=== PATIENT | male | born 1980 | race Caucasian/White ===

== ENCOUNTER 2019-05-17 04:26 | Inpatient (IN) | payer MEDICARE, MEDICAID ==
[~2019-05-17] VITALS: Ht 188 cm; Wt 104.3 kg
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
[2019-05-17] MEDS ORDERED: TDAP [DIPH/PERTUSSIS/TET] 0.5 ML VIAL IM ONE ×2 (04:45→05:00)
[2019-05-17 04:58] LABS: BASOPHILS % (AUTO) 0.3 % (0.0-2.0); EOSINOPHILS % (AUTO) 0.4 % (0.0-6.0); HEMATOCRIT 39 % (39-51); HEMOGLOBIN 13.7 g/dL (13.5-17.5); LYMPHOCYTES # (AUTO) 0.9 /CMM (0.8-4.8); LYMPHOCYTES % (AUTO) 8.4 % (20.0-44.0); MEAN CORPUSCULAR HGB CONC 36 g/dl (31.0-36.0); MEAN CORPUSCULAR VOLUME 87 fL (80-96); MONOCYTES # (AUTO) 0.8 /CMM (0.1-1.30); MONOCYTES % (AUTO) 7.7 % (2.0-12.0); NEUTROPHILS # (AUTO) 8.8 /CMM (1.8-8.9); NEUTROPHILS % (AUTO) 83.2 % (43.0-81.0); PLATELET COUNT (AUTO) 157 /CMM (150-450); RED BLOOD CELL COUNT(AUTO) 4.45 MIL/uL (4.5-6.0); WHITE BLOOD COUNT (AUTO) 10.6 K/uL (4.3-11.0)
[2019-05-17 05:09] LABS: CALCIUM, SERUM 8.8 mg/dL (8.5-10.1); CARBON DIOXIDE 26 mmol/L (21-32); CHLORIDE 95 mmol/L (98-107); CREATININE 0.9 mg/dL (0.6-1.3); GLUCOSE 123 mg/dL (74-106); POTASSIUM 3.8 mmol/L (3.5-5.1); SODIUM SERUM 132 mmol/L (136-145); UREA NITROGEN, BLOOD 6 mg/dL (7-18)
[2019-05-17 05:19] LABS: ALANINE AMINOTRANSFERASE 37 U/L (12-78); ALBUMIN 4.3 g/dL (3.4-5.0); ALCOHOL, BLOOD < 3 mg/dL (0-0); ALKALINE PHOSPHATASE 70 U/L (46-116); ASPARTATE AMINOTRANSFERASE 46 U/L (15-37); BILIRUBIN,DIRECT 0.2 mg/dL (0.0-0.2); BILIRUBIN,TOTAL 0.6 mg/dL (0.2-1.0)
[2019-05-17] MEDS ORDERED: LIDOCAINE 1%-EPI 1:100,000 20 ML VIAL ONE (05:19)
[2019-05-17 05:20] LABS: ACETAMINOPHEN 0 ug/ml (10-30); SALICYLATE < 0.2 mg/dL (2.8-20.0)
--- NOTE | 2019-05-17 05:25 | NUR ---
pt received mihai on his R head laceration by at the bed side. tolerated the procedure well
--- NOTE | 2019-05-17 05:34 | NUR ---
urine collected and called lab for steel pickler
[2019-05-17 05:45] LABS: APPEARANCE,URINE CLEAR (CLEAR); BILIRUBIN,URINE NEGATIVE (NEGATIVE); BLOOD, URINE NEGATIVE Ery/uL (NEGATIVE); COLOR,URINE YELLOW (YELLOW); KETONES,URINE NEGATIVE (NEGATIVE); NITRITE, URINE NEGATIVE (NEGATIVE); PROTEIN,URINE NEGATIVE (NEGATIVE); UGLUCOSE NEGATIVE (NEGATIVE); UROBILINOGEN,URINE 0.2 EU/dL (0.2)
[2019-05-17 05:46] LABS: LEUKOCYTE ESTERASE ,URINE NEGATIVE (NEGATIVE)
[2019-05-17] MEDS ORDERED: MORPHINE SULFATE INJ 2 MG/ML DISP.SYRIN IV ONE (06:00)
[2019-05-17] MEDS ORDERED: MORPHINE SULFATE INJ 2 MG/ML DISP.SYRIN ONE (06:01)
[2019-05-17] MEDS ORDERED: IV NS 0.9% 1,000 ML BAG IV ONE (07:00)
--- NOTE | 2019-05-17 07:25 | NUR ---
ENDORSEMENT RECEIVED FROM BIJAN RICE FOR KEMAL
--- NOTE | 2019-05-17 07:30 | NUR ---
RN MS NOTES LIST OF CURRENT MEDS OBTAINED FROM OCTAVIA RICE, OF [facility].
--- NOTE | 2019-05-17 07:40 | NUR ---
report given to nuvia on third floor
[2019-05-17] MEDS ORDERED: ACETAMINOPHEN 325 MG TABLET PO PRN (08:00)
[2019-05-17] MEDS ORDERED: ONDANSETRON HCL/PF 4 MG/2 ML VIAL IVP PRN (08:00)
[2019-05-17] MEDS ORDERED: MAGNESIUM HYDROXIDE 30 ML UDC PO PRN (08:00)
[2019-05-17] MEDS ORDERED: MAG HYDROX/AL HYDROX/SIMETH 30 ML UDC PO PRN (08:00)
[2019-05-17] MEDS ORDERED: ZOLPIDEM TARTRATE 5 MG TABLET PO PRN ×2 (08:00→13:30)
[2019-05-17] MEDS ORDERED: Z GUARD REMEDY 2 OZ OINT TP PRN (08:00)
--- NOTE | 2019-05-17 08:10 | NUR ---
RN MS NOTES RECEIVED PT FROM E.R. STAFF, PT IS AWAKE, ALERT AND VERBALLY RESPONSIVE, NOT IN DISTRESS, COMPLAINING OF LEFT ARM PAIN, ASSISTED TO BED, MADE COMFORTABLE, ROOM SET UP ORIENTATION PROVIDED, VERBALIZED UNDERSTANDING, SITTER AT BEDSIDE, SAFETY PRECAUTIONS OBSERVED, DRESSING AT LEFT ARM INTACT.
[2019-05-17] MEDS: MORPHINE SULFATE INJ 2 MG/ML DISP.SYRIN IV PRN ×3 (09:10→18:45)
[2019-05-17 11:30] VITALS: BP 153/85
--- NOTE | 2019-05-17 11:30 | NUR ---
RN MS NOTES LIMITED SKIN ASSESSMENT DONE, PT DOES NOT WANT THE REST OF HIS BODY BE CHECKED.
[2019-05-17] MEDS ORDERED: LORAZEPAM 1 MG TABLET PO PRN (13:30)
[2019-05-17] MEDS ORDERED: HALOPERIDOL 5 MG TABLET PO PRN (13:30)
[2019-05-17] MEDS: HALOPERIDOL 5 MG TABLET PO SCH ×2 (13:43→16:14)
[2019-05-17] MEDS: BENZTROPINE MESYLATE (1 MG) 1 MG TABLET PO SCH ×2 (13:43→16:14)
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
[2019-05-17] MEDS: HYDROCODONE/APAP 5/325MG 1 EACH TABLET PO PRN ×2 (16:14→23:05)
[2019-05-17 17:00] VITALS: BP 139/77
--- NOTE | 2019-05-17 18:11 | NUR ---
RN MS NOTES PT IN BED, AWAKE, ALERT AND VERBALLY RESPONSIVE, CALM AT THIS TIME, PAIN MEDS GIVEN ORDERED, KEPT SLING AT LEFT ARM IN PLACE, REINFORCED NEEDED, PT SEEN BY TOMMY DALTON, SITTER AT BEDSIDE, CALL LIGHT WITHIN REACH, NEEDS ATTENDED, SAFETY PRECAUTIONS OBSERVED.
--- NOTE | 2019-05-17 19:30 | NUR ---
MS KRYSTAL NOTES RECEIVED ON BED A/O X2,BREATHING NORMAL,NOT IN ANY FORM OF DISTRESS.LEFT ARM ULNAR FRACTURE,WITH SPLINTS WRAPPED WITH BROWN KERLIX.SALINE LOCK LEFT AC #18 INTACT AND PATENT.NOTED SKIN ABRASION ON NOSE RIDGE.FALL PRECAUTION OBSERVED.MONITOR FOR SUICIDAL IDEATION.SITTER AT BEDSIDE FOR SAFETY.CALL LIGHT IN REACH,NEEDS ANTICIPATED. Addendum: 05/17/19 at 2043 by ARLEN AMARO RN SALINE LOCK ON THE RIGHT AC #18
[2019-05-17] MEDS ORDERED: MIRT15TA7 PO (19:39)
[2019-05-17] MEDS ORDERED: QUET100T PO (19:39)
[2019-05-17] MEDS ORDERED: HALO100A2 IM (19:39)
[2019-05-17] MEDS ORDERED: HALO10TA13 PO (19:39)
[2019-05-17 20:00] VITALS: BP 125/75
--- NOTE | 2019-05-17 23:05 | NUR ---
MS RN NOTES PAIN MANAGEMENT AWAKE,C/O LEFT ARM PAIN 7/10 ON PAIN SCALE,NORCO 5/325MG,1 TAB PO GIVEN
--- NOTE | 2019-05-18 00:20 | NUR ---
MS RN NOTES C/O INSOMNIA,AMBIEN 5MG,2 TABS PO GIVEN ORDERED 10MG.
--- NOTE | 2019-05-18 06:14 | NUR ---
MS RN NOTES ON BED SLEEPING.AMBIEN 10MG PO EFFECTIVE.PAIN MANAGEMENT WORKS WELL.NO FALL, SITTER AT BEDSIDE.LEFT ARM SPLINTS REMAINS IN PLACE.IN NO ACUTE DISTRESS.WILL ENDORSE TO DAY NURSE FOR KEMAL.
[2019-05-18 06:25] LABS: BASOPHILS % (AUTO) 0.6 % (0.0-2.0); HEMATOCRIT 40 % (39-51); HEMOGLOBIN 13.7 g/dL (13.5-17.5); LYMPHOCYTES # (AUTO) 1.2 /CMM (0.8-4.8); LYMPHOCYTES % (AUTO) 16.8 % (20.0-44.0); MEAN CORPUSCULAR HGB CONC 35 g/dl (31.0-36.0); MEAN CORPUSCULAR VOLUME 89 fL (80-96); MONOCYTES # (AUTO) 1.1 /CMM (0.1-1.30); MONOCYTES % (AUTO) 15.8 % (2.0-12.0); NEUTROPHILS # (AUTO) 4.6 /CMM (1.8-8.9); NEUTROPHILS % (AUTO) 65.8 % (43.0-81.0); PLATELET COUNT (AUTO) 162 /CMM (150-450); RED BLOOD CELL COUNT(AUTO) 4.45 MIL/uL (4.5-6.0)
[2019-05-18 06:40] LABS: ALBUMIN 4.1 g/dL (3.4-5.0); CREATININE 0.8 mg/dL (0.6-1.3); MAGNESIUM 1.9 mg/dL (1.8-2.4); PHOSPHORUS 3.1 mg/dL (2.5-4.9); POTASSIUM 3.6 mmol/L (3.5-5.1); TOTAL PROTEIN, SERUM 7.1 g/dL (6.4-8.2)
--- NOTE | 2019-05-18 07:30 | NUR ---
RN MS NOTES PT IN BED, AWAKE, ALERT TO SELF, VERBALLY RESPONSIVE, NO FACIAL GRIMACING, STATED THAT HE IS NOT IN PAIN RIGHT NOW, COMPLIANT WITH CARE, SITTER AT BEDSIDE, SAFETY PRECAUTIONS OBSERVED.
[2019-05-18 08:00] VITALS: BP 126/81
[2019-05-18] MEDS: HALOPERIDOL 5 MG TABLET PO SCH ×2 (08:25→17:24)
[2019-05-18] MEDS: BENZTROPINE MESYLATE (1 MG) 1 MG TABLET PO SCH ×2 (08:25→17:24)
[2019-05-18] MEDS: HYDROCODONE/APAP 5/325MG 1 EACH TABLET PO PRN ×2 (09:24→17:25)
--- NOTE | 2019-05-18 13:00 | NUR ---
RN MS NOTES PT IN BED, AWAKE, ALERT AND VERBALLY RESPONSIVE, CALM AT THIS TIME, PAIN MEDS GIVEN ORDERED, SEEN BY DR. DOMINIQUE, SPLINT AT LEFT ARM IN PLACE, SAFETY PRECAUTIONS OBSERVED.
[2019-05-18 16:00] VITALS: BP 119/72
--- NOTE | 2019-05-18 18:21 | NUR ---
RN MS NOTES PT IN BED, AWAKE, ALERT AND VERBALLY RESPONSIVE, CALM AND COMPLIANT WITH MEDS AND INTERVENTIONS, SEEN BY CRISIS TEAM, PLACED ON HOLD, SAFETY PRECAUTIONS OBSERVED, ASSISTED TO BATHROOM NEEDED, KEPT LEFT ARM SPLINT IN PLACE, AWAITING MENTAL HEALTH UNIT PLACEMENT.
--- NOTE | 2019-05-18 19:39 | NUR ---
MS BRIDGER INITIAL NOTES RECEIVED REPORT FROM AM NURSE WHILE DOING OUT ROUNDS AND SEEN PT IN BED LYING IN BED CALMED AND QUIET BUT INTERACT WHEN YOU TALKED TO HIM. NO SIGNS OF ANY DISTRESS NOTED. ABLE TO FOLLOWED DIRECTION . KEPT HIM COMFORTABLE AND SAFE AT ALL TIMES. SITTER AT THE BEDSIDE FOR SAFETY. WILL CONTINUE MONITORING.
[2019-05-18 20:00] VITALS: BP 115/63
--- NOTE | 2019-05-18 20:45 | NUR ---
MS SHED BOSS NOTES GOT CALLED FROM [facility]TA[facility]E AND TELLING ME THAT LET THE SPORTS PHYSICIAN AWARE THAT PATIENT ACCEPTED IN [facility] AND CALL JF (CHARGE NURSE ) [phone]. CHARGE NURSE MYRNA AWARE.
--- NOTE | 2019-05-19 00:16 | NUR ---
MS BRIDGER NOTES PT SLEEPING COMFORTABLY IN BED WITHOUT ANY DISTRESS NOTED. NO SIGNS OF ANY SUICIDAL IDEATION NOTED UP TO NOW. WILL CONTINUE MONITORING. SITTER AT THE BEDSIDE FOR SAFETY.
--- NOTE | 2019-05-19 07:20 | NUR ---
MS RN NOTES PATIENT IN BED EYES CLOSED, RESPOND TO VERBAL AND TACTILE STIMULI. NO ACUTE DISTRESS NOTED. BREATHING UNLABORED. NO FACIAL GRIMACING NOTED. IV ACCESS PATENT AND INTACT. LEFT ARM SPLINT IN PLACE. SAFETY MEASURES IN PLACE. CALL LIGHT WITHIN REACH. WILL CONTINUE TO MONITOR ACCORDINGLY.
--- NOTE | 2019-05-19 07:45 | NUR ---
NURSING ATTENDANT CLOSING NOTES PT RESTING COMFORTABLY IN BED , CALMED AND SLEPT WELL LAST NIGHT. NO SIGNS OF ANY SUICIDAL IDEATION. SITTER AT THE BEDSIDE FOR SAFETY. ENDORSE TO AM NURSE.
[2019-05-19] MEDS: BENZTROPINE MESYLATE (1 MG) 1 MG TABLET PO SCH ×2 (08:16→16:22)
[2019-05-19] MEDS: HALOPERIDOL 5 MG TABLET PO SCH ×2 (08:16→16:22)
--- NOTE | 2019-05-19 09:54 | NUR ---
SHELTON was informed by HELIO Macias that [facility] called and wanted manager integrated /SW to contact them regarding report. SHELTON called [facility] and was informed that charge nurse is in a meeting. SHELTON left contact number for a call back.
--- NOTE | 2019-05-19 11:06 | NUR ---
WOUND CARE CONSULT: PT PRESENTS WITH MULTIPLE SKIN ISSUES INCLUDING DRY ABRASIONS TO FACE, SKIP TO SCALP, RT ARM ABRASION, LEFT ARM ORTHO SPLINT DRESSING AND DISCOLORATION TO BILATERAL HEELS WITH DRY ABRASION TO LEFT HEEL, PRESENT ON ADMISSION. PT IS CONTINENT. SITTER AT BEDSIDE. PT ABLE TO ASSIST WITH TURNING AND REPOSITIONING IN BED. RECOMMENDATIONS MADE FOR WOUND CARE AND SKIN PROTECTION. DISCUSSED WITH NURSING STAFF. DEFER TO ORTHO FOR LEFT ARM. WILL SEE PRN. NEFF IN AGREEMENT WITH PLAN OF CARE. Addendum: 05/19/19 at 1109 by HA FOWLER WNDNU Amended: Links added.
--- NOTE | 2019-05-19 11:26 | NUR ---
SHELTON spoke with Laury CADET at [facility] who stated pt. is accepted at their hospital. Pt. is a direct admit and accepting psychiatrist is Dr. Echevarria and accepting physician is Dr. Rutherford. Pt. will be going to room 214/2 at [facility] located at [address] [place] [address]. [place] [id number]. SHELTON updated case operator Hanna with aforementioned information and she will be arranging transportation for the pt.
--- NOTE | 2019-05-19 16:40 | NUR ---
MS SPECIAL SERVICES SUPERVISOR NOTED PATIENT DISCHARGE TO [facility] REPORT GIVEN TO LAURA RICE ON 5150 HOLD WITH STABLE VITAL SIGNS. NO ACUTE DISTRESS NOTED. BREATHING UNLABORED. IV ACCESS REMOVED, NO BLEEDING, NO REDNESS, NO SWELLING NOTED. DISCHARGE INSTRUCTIONS HANDED OVER TO EMT PERSONNEL INCLUDING ORIGINAL 5150 HOLD AND MEDICATION RECONCILIATION TO BE GIVEN TO THE NURSE . ALL BELONGINGS ACCOUNTED FOR. RIGHT FOREARM DRESSING CLEAN, DRY AND INTACT. LEFT SPLINT ON LEFT ARM IN PLACE WITH GOOD CIRCULATION. PICKED UP VIA AMBULANCE IN A GURNEY ACCOMPANIED BY 2 EMT PERSONNEL IN STABLE CONDITION. PATIENT ALERT ORIENTED X 3, CALM, COOPERATIVE AND FOLLOW INSTRUCTIONS. DENIED SUICIDAL IDEATIONS/HOMICIDAL IDEATIONS.
== END 2019-05-19 17:34 | DRG 563 ==
LOC: ER 04:29 → MED 05:51
PROVIDERS: ADMIT Internal Medicine; ATTEND Internal Medicine
DX: S52.202A Unspecified fracture of shaft of left ulna, initial encounter for closed fracture (principal); E87.1 Hypo-osmolality and hyponatremia; R45.851 Suicidal ideations; S52.202K Unspecified fracture of shaft of left ulna, subsequent encounter for closed fracture with nonunion; F20.0 Paranoid schizophrenia; S01.01XA Laceration without foreign body of scalp, initial encounter; X83.8XXA Intentional self-harm by other specified means, initial encounter; Y92.481 Parking lot as the place of occurrence of the external cause; Z88.8 Allergy status to other drugs, medicaments and biological substances; Z91.018 Allergy to other foods; Z79.899 Other long term (current) drug therapy; F20.9 Schizophrenia, unspecified; X58.XXXD Exposure to other specified factors, subsequent encounter; Z96.698 Presence of other orthopedic joint implants; F29 Unspecified psychosis not due to a substance or known physiological condition; F31.9 Bipolar disorder, unspecified; F79 Unspecified intellectual disabilities
CPT/HCPCS: 36415; 70450-TC; 73090-TC; 80048-TC; 80053-TC; 80061-TC; 80076-TC; 80305; 81000-TC; 83735-TC; 84100-TC; 85025-TC; 87081-TC; 90715; A6403; G0378; G0480; J2270; J3490; J7030